=== PATIENT | female | born 1965 | race Caucasian/White ===

== ENCOUNTER 2020-01-31 11:38 | Emergency (ER) | payer MEDICARE, MEDICAID ==
[~2020-01-31] VITALS: Ht 157.5 cm; Wt 104.0 kg
[~2020-01-31 11:38] MED LIST: FLUO10CA25 PO
[2020-01-31 12:05] VITALS: BP 125/63
[2020-01-31] MEDS ORDERED: KETOROLAC 60MG/2ML VIAL IM ONE (13:45)
== END 2020-01-31 15:10 | disposition home or self-care (01) ==
LOC: ER 12:10
DX: M47.9 Spondylosis, unspecified (principal); E78.00 Pure hypercholesterolemia, unspecified; E11.9 Type 2 diabetes mellitus without complications
CPT/HCPCS: 72040; 72100; 96372; 99284; J1885